=== PATIENT | female | born 1970 | race Caucasian/White ===

== ENCOUNTER 2021-11-21 09:20 | Emergency (ER) | payer SELFPAY ==
[~2021-11-21] VITALS: Ht 165.1 cm; Wt 74.8 kg
[2021-11-21] MEDS ORDERED: KETOROLAC TROMETHAMINE 30 MG INJ IM ONE (09:30)
[2021-11-21] MEDS ORDERED: DIAZEPAM 2 MG TABLET PO ONE (09:30)
[2021-11-21] MEDS ORDERED: KETOROLAC TROMETHAMINE 30 MG INJ ONE (09:39)
[2021-11-21] MEDS ORDERED: DIAZEPAM 2 MG TABLET ONE (09:40)
[2021-11-21] MEDS ORDERED: LIDO30AD10 TP (10:52)
[2021-11-21] MEDS ORDERED: METH-807 PO (10:52)
[2021-11-21] MEDS ORDERED: IBUP-1953 PO (10:52)
--- NOTE | 2021-11-21 11:10 | NUR ---
Patient discharged to home in stable condition. Written and verbal after care instructions given. Patient verbalizes understanding of instructions. Stressed follow up or return to ER for worsening s/s.
[2021-11-21 11:16] VITALS: BP 117/67
== END 2021-11-21 11:28 | disposition home or self-care (01) ==
LOC: ER 09:20
DX: M54.9 Dorsalgia, unspecified (principal); M54.2 Cervicalgia
CPT/HCPCS: 99284; 72125; 72072; 72110; 96372; J1885; A4663